=== PATIENT | male | born 1985 | race Two or more races ===

== ENCOUNTER 2025-08-18 15:34 | Outpatient (REF) | payer MEDICAID, SELFPAY ==
--- OUTSIDE RECORDS SUMMARY | 2025-08-18 14:30 | XMS_ITS | Encounter Summary ---
Author Organization [employer] Address [address] [facility] [address]t [place] [address] Care Team Providers Care Project Director Name Role Phone Padma Dunn Unavailable Saud Seay CNP Primary Care Provider [phone] Reason for Visit * Reason Comments Follow-up Hospital Encounter Details Date Type Department Care Team (Latest Contact Info) Description 08/18/2025 2:30 PM EDT Office Visit [facility] [address] [place], [place] [phone] Saud Seay CNP [address] [place], [place] [phone] Hyperlipidemia, unspecified hyperlipidemia type (Primary Dx); Encounter to establish care; Depression, unspecified depression type; Bipolar affective disorder, remission status unspecified ([facility]); Anxiety; Seasonal allergies; Erectile dysfunction, unspecified erectile dysfunction type; Screening for STDs (sexually transmitted diseases) Social History Tobacco Use Types Packs/Day Years Used Date Smoking Tobacco: Never Smokeless Tobacco: Never Tobacco Cessation:Counseling Given: Not Answered Alcohol Use Standard Drinks/Week Comments Never 0 (1 standard drink = 0.6 oz pur e alcohol) Housing Stability Answer Date Recorded What is your housing situation today? I have amber garcia 08/12/[address] you li ve. Do you have problems with any of the following? Not on file 08/12/2025 Food Insecurity Answer Date Recorded Within the past 12 months, y ou worried that your food would run out before you got money to buy more: Often true 08/12/2025 Within the past 12 months,th e food you bought just didn't last and you didn't have enough money to get more: Often true Transportation Answer Date Recorded In the past 12 months, has l ack of transportation kept you from medical appts, meetings, work or from getting things needed for daily living? Yes, it has kept me from medical appointments or getting medications. 08/12/2025 Utilities Answer Date Recorded In the past 12 months, has t he electric, gas, oil or water company threatened to shut off services in your home? No 08/12/2025 Internet Access Answer Date Recorded Internet Access Q1 No 08/12/2025 Internet Access Q2 I cannot afford it 08/12/2025 Sex and Gender Information Value Date Recorded Sex Assigned at Male 06/24/2024 1:39 PM EDT Legal Sex Male 1:37 PM EDT Gender Identity Male 06/24/2024 1:39 PM EDT Sexual Orientation Don't know 06/24/2024 1: 39 PM EDT documented as of this encounter Last Filed Vital Signs Vital Sign Reading Time Taken Comments Blood Pressure 116/78 08/18/2025 2:41 PM EDT Pulse 76 08/18/2025 2:41 PM EDT Temperature 36.6 C (97.8 F) 08/18/2025 2:41 PM EDT Respiratory Rate 14 08/18/2025 2:41 PM EDT Oxygen Saturation 98% 08/18/2025 2:41 PM EDT Inhaled Oxygen Concentration - - Weight 113 kg (249 lb) 08/18/2025 2:41 PM EDT Height 185.4 cm (6' 1 ) 08/18/2025 2:41 PM EDT Body Mass Index 32.85 08/18/2025 2:41 PM EDT documented in this encounter Plan of Treatment Scheduled Orders Name Type Priority Associated Diagnoses Orde r Schedule Lipid Panel, Standard Lab Routine Hyperlipidemia, unspecified hyperlipidemia type Encounter to establish care Expected: 08/18/2025 (Approximate), Expires: 08/18/2026 HIV-1/2 Antigen and Antibodies, Fourth Generation, with Reflexes Lab Routine Encounter to establish care Expected: 08/18/2025 (Approximate), Expires: 08/18/2026 Hepatitis C Antibody with Reflex to HCV, RNA, Quantitative, Real-Time PCR Lab Routine Encounter to establish care Expected: 08/18/2025, Expires: 08/18/2026 Hepatitis B Surface Antibody, Qualitative Lab Routine Encounter to establish care Expected: 08/18/2025 (Approximate), Expires: 08/18/2026 Hepatitis B Core Antibody, Total Lab Routine Encounter to establish care Expected: 08/18/2025 (Approximate), Expires: 08/18/2026 Hepatitis B surface antigen, EIA Lab Routine Encounter to establish care Expected: 08/18/2025 (Approximate), Expires: 08/18/2026 CBC auto differential Lab Routine Encounter to establish care Expected: 08/18/2025 (Approximate), Expires: 08/18/2026 Comprehensive Metabolic Panel Lab Routine Encounter to establish care Expected: 08/18/2025 (Approximate), Expires: 08/18/2026 TSH W/Reflex to FT4 Lab Routine Encounter to establish care Expected: 08/18/2025 (Approximate), Expires: 08/18/2026 RPR (Monitor) with Reflex to Titer Lab Routine Screening for STDs (sexually transmitted diseases) Expected: 08/18/2025, Expires: 08/18/2026 Chlamydia/N. Gonorrhoeae, PCR, Urine Lab Routine Screening for STDs (sexually transmitted diseases) Ordered: 08/18/2025 Hemoglobin A1c Lab Routine Hyperlipidemia, unspecified hyperlipidemia type Expected: 08/18/2025 (Approximate), Expires: 08/18/2026 documented as of this encounter Visit Diagnoses Diagnosis Hyperlipidemia, unspecified hyperlipidemia type- Primary Encounter to establish care Depression, unspecified depression type Bipolar affective disorder, remission status unspecified ([facility]) Anxiety Anxiety state, unspecified Seasonal allergies Allergic rhinitis, cause unspecified Erectile dysfunction, unspecified erectile dysfunction type Screening for STDs (sexually transmitted diseases) Screening examination for venereal disease documented in this encounter Care Teams Project Director Relationship Specialty Start Date End Date Saud Seay CNP [address] [place] [id number] PCP - General Family Medicine 08/18/25 Padma Dunn Strength And Conditioning Coach Behavioral Health 07/22/25 Talia Momin Field EngineerSenior Adults Director 08/21/24 documented as of this encounter
--- OUTSIDE RECORDS SUMMARY | 2025-08-18 18:22 | XMS_ITS | Encounter Summary ---
Author Organization [employer] Address [address] [facility] 7t [place] [address] Care Team Providers Care Cracker Sprayer Name Role Phone Padma Dnun Unavailable Encounter Details Date Type Department Care Team (Late st Contact Info) Description 08/13/2025 Patient Outreach [facility] Care [facility] (C3) Department [address] [facility] [address] [place] [address] Padma Dunn Social History Tobacco Use Types Packs/Day Years Used Date Smoking Tobacco: Never Assessed Housing Stability Answer Date Recorded What is [...] PM EDT documented as of this encounter Progress Notes * Padma Dunn - 08/13/2025 1:19 PM EDT [facility], PT1 scheduled for member for 08-18-2025 @2:30pm @[facility] 08/18/2025 02:00 PM 02:[address], [address] , [place] [address] , [place] [address] [id number] HOLDING VENDOR 08/18/2025 03:[address] , [place] [address], [address] , [place] [address] [id number] HOLDING VENDOR documented in this encounter Plan of Treatment Not on file documented as of this encounter Visit Diagnoses Not on filedocumented in this encounter Care Teams Cracker Sprayer Relationship Specialty Start Date End Date Padma Dunn Phlebotomy Technologist Behavioral Health 07/22/25 Talia Momin Core RescuerGroup Sales Coordinator 08/21/24 documented as of this encounter
--- OUTSIDE RECORDS SUMMARY | 2025-08-18 18:22 | XMS_ITS | Encounter Summary ---
Author Organization [employer] Address [address] [facility] 7[address] [place] [address] Care Team Providers Care Ballpoint Pen Assembly Machine Operator Name Role Phone Padma Dunn Unavailable Saud Seay CNP Primary Care Provider [phone] Encounter Details Date Type Department Care Team (Late st Contact Info) Description 08/18/2025 Patient Outreach [facility] (C3) Department [address] [facility] 7 [place] [id number] Padma Dunn Social History Tobacco Use Types Packs/Day Years Used Date Smoking Tobacco: Never Smokeless Tobacco: Never Alcohol Use Standard Drinks/Week Comments Never 0 [...] encounter Progress Notes * Padma Dunn - 08/18/2025 3:19 PM EDT CHW called member, left a voice message Checking on the PT1 and medical appointment with HC. documented in this encounter Plan of Treatment Not on file documented as of this encounter Visit Diagnoses Not on filedocumented in this encounter Care Teams Ballpoint Pen Assembly Machine Operator Relationship Specialty Start Date End Date Suad Seay CNP [address] [place] [address] PCP - General Family Medicine 08/18/25 Padma Dunn Garment Form Assembler Behavioral Health 07/22/25 Talia Momin Electric Brain Wave Equipment MechanicSuperintendent Overhead Distribution 08/21/24 documented as of this encounter
--- OUTSIDE RECORDS SUMMARY | 2025-08-18 18:22 | XMS_ITS | Encounter Summary ---
Author Organization [employer] Address [address] [facility] 7t [place] [address] Care Team Providers Care Pipeline Superintendent Name Role Phone Padma Dunn Unavailable Saud Seay CNP Primary Care Provider [phone] Encounter Details Date Type Department Care Team (Late st Contact Info) Description 08/18/2025 Patient Outreach [facility] (C3) Department [address] [facility] 7 [place] [id number] Padma Dunn Social History Tobacco Use Types [...] Progress Notes * Padma Dunn - 08/18/2025 3:57 PM EDT CHW spoke with member, Provided PT1 transport contact information. [employer]. ([id number]) documented in this encounter Plan of Treatment Not on file documented as of this encounter Visit Diagnoses Not on filedocumented in this encounter Care Teams Pipeline Superintendent Relationship Specialty Start Date End Date Saud Seay CNP [address] [place] [id number] PCP - General Family Medicine 08/18/25 Padma Dunn Steel Erector Apprentice Behavioral Health 07/22/25 Talia Momin Saw SharpenerCranberry Bog Supervisor 08/21/24 documented as of this encounter
--- OUTSIDE RECORDS SUMMARY | 2025-08-18 18:22 | XMS_ITS | Encounter Summary ---
Author Organization [employer] Address [address] [facility] [address] [place] [address] Care Team Providers Care Switch Adjuster Name Role Phone Padma Dunn Unavailable Dawood Dominickisabela VALADEZ Primary Care Provider [phone] Encounter Details Date Type Department Care Team (Latest Contact Info) Description 08/18/2025 Travel Social History Tobacco Use Types Packs/Day Years [...] PM EDT documented as of this encounter Plan of Treatment Not on file documented as of this encounter Visit Diagnoses Not on filedocumented in this encounter Care Teams Switch Adjuster Relationship Specialty Start Date End Date Saud Seay CNP [address] [place] [address] PCP - General Family Medicine 08/18/25 Padma Dunn Analysis Consultant Behavioral Health 07/22/25 Talia Momin Coater HelperDental Chair Assembler 08/21/24 documented as of this encounter
--- OUTSIDE RECORDS SUMMARY | 2025-08-18 18:22 | XMS_ITS | Encounter Summary ---
Author Organization [employer] Address [address] [facility] [address] 7[address] [place] [address] Care Team Providers Care Recruiting Team Lead Name Role Phone Padma Dunn Unavailable Reason for Visit * Reason Onset Date Comments chart prep 08/14/2025 Encounter Details Date Type Department Care Team (Late st Contact Info) Description 08/14/2025 Telephone [facility] [address] [place] [address] [facility] MD chart prep Social History Tobacco Use Types Packs/Day Years [...] PM EDT documented as of this encounter Miscellaneous Notes * Telephone Encounter - Mel Cox MA - 08/14/2025 4:16 PM EDT Chart Prep Labs: not applicable Images: not applicable Referrals: not applicable Vaccines due: Covid, Flu, Hep B, and HPV Screenings: STI screening Overdue care gaps: SBIRT, SDOH, PHQ-9, VERA-7, Disability screen, and Tobacco documented in this encounter Plan of Treatment Not on file documented as of this encounter Visit Diagnoses Not on filedocumented in this encounter Care Teams Recruiting Team Lead Relationship Specialty Start Date End Date Padma Dunn Contracts Specialist Behavioral Health 07/22/25 Talia Momin Director Industrial MuseumVp Strategy 08/21/24 documented as of this encounter
--- OUTSIDE RECORDS SUMMARY | 2025-08-18 18:22 | XMS_ITS ---
Author Organization [employer] Address [address] [facility] [address] [place] [address] Care Team Providers Care [employer] Dean Name Role Phone Padma Dunn Unavailable Saud Seay [facility] Primary Care Provider [phone] [phone] [facility] Status:Enrolled (Active) Start date:07/22/2025 Enrollment date:07/30/2025 Enrollment reason:ADT Feed Case Team Name Relationship Phone Padma Dunn(Responsible Staff) Vocal Performer Continued Care and Services Coordination
--- OUTSIDE RECORDS SUMMARY | 2025-08-18 18:22 | XMS_ITS | Clinical Summary ---
Author Organization [employer] Address [address] [facility] 7[address] [place] [address] Care Team Providers Care Occupational Therapy Department Chair Name Role Phone Padma Dunn Unavailable Saud Seay CNP Primary Care Provider [phone] Allergies No known active allergies Medications * This document contains information received from the source organization and may not represent a complete record from that organization. ARIPiprazole (Abilify) 15 MG tablet Take 15 mg by mouth in the morning. 025 Active semaglutide (Ozempic, 0.25 or 0.5 MG/DOSE,) 2 MG/1.5ML solution pen-injector Inject under the skin. Active Cholecalcifero l (Vitamin D) 50 MCG (1999 UT) capsule Take 1 capsule by mouth Once per day. Active haloperidol (Haldol) 1 MG tablet Take 1 mg by mouth if needed each day (for hallucinations). Active fluticasone (Flonase) 50 MCG/ACT nasal sprayIndicatio ns:Seasonal allergies Administer 1 spray into each nostril 2 times daily. Shake gently. Before first use, prime pump. After use, clean tip and replace cap. 16 g 3 025 Active hydrOXYzine HCl (Atarax) 25 MG tabletIndicati ons:Bipolar affective disorder, remission status unspecified (CMS/HCC),Anxi ety Take 1 tablet (25 mg) by mouth if needed in the morning, at noon, and at bedtime for itching. 90 tablet 3 025 2025 Active traZODone (Desyrel) 50 MG tabletIndicati ons:Bipolar affective disorder, remission status unspecified (CMS/HCC) Take 1 tablet (50 mg) by mouth at bedtime. 30 tablet 3 025 2025 Active divalproex (Depakote) 500 MG EC tabletIndicati ons:Bipolar affective disorder, remission status unspecified (CMS/HCC),Anxi ety Take 1 tablet (500 mg) by mouth 2 times daily. 60 tablet 3 025 2024 Active Allergy Relief Cetirizine 10 MG tabletIndicati ons:Seasonal allergies Take 1 tablet (10 mg) by mouth Once per day. 30 tablet 3 Active sildenafil (Viagra) 50 MG tabletIndicati ons:Erectile dysfunction, unspecified erectile dysfunction type Take 1 tablet (50 mg) by mouth if needed each day for erectile dysfunction. 10 tablet 025 2024 Active buPROPion XL (Wellbutrin XL) 150 MG 24 hr tablet TAKE ONE TABLET BY MOUTH EVERY DAY FOR DEPRESSION AND FOCUS 025 2024 Discontinued(M ed list cleanup (will not trigger notification to Pharmacy)) Allergy Relief Cetirizine 10 MG tablet Take 1 tablet by mouth Once per day. 025 2024 Discontinued(R eorder (will not trigger notification to Pharmacy)) cholecalcifero l VITAMIN D (Vitamin D-3) 50 MCG (2000 UT) tablet Take 1 tablet by mouth Once per day. 025 2024 Discontinued(M ed list cleanup (will not trigger notification to Pharmacy)) divalproex (Depakote) 500 MG EC tablet Take 1 tablet by mouth 2 times daily. 025 2024 Discontinued(R eorder (will not trigger notification to Pharmacy)) fluticasone (Flonase) 50 MCG/ACT nasal spray ADMINISTER 2 SPRAYS TO BOTH NOSTRILS DAILY NEEDED FOR NASAL CONGESTION 025 2024 Discontinued(R eorder (will not trigger notification to Pharmacy)) haloperidol (Haldol) 0.5 MG tablet TAKE ONE TABLET BY MOUTH TWICE A DAY NEEDED FOR HALLUCINATIONS 025 2024 Discontinued(M ed list cleanup (will not trigger notification to Pharmacy)) hydrOXYzine HCl (Atarax) 25 MG tablet TAKE ONE TABLET BY MOUTH THREE TIMES A DAY NEEDED FOR ANXIETY / INSOMNIA 025 2024 Discontinued(R eorder (will not trigger notification to Pharmacy)) ibuprofen 800 MG tablet Take 1 tablet by mouth every 8 (eight) hours if needed for pain. 025 2024 Discontinued(M ed list cleanup (will not trigger notification to Pharmacy)) OLANZapine (ZyPREXA) 5 MG tablet Take 1 tablet by mouth at bedtime. 025 2024 Discontinued(M ed list cleanup (will not trigger notification to Pharmacy)) traZODone (Desyrel) 50 MG tablet TAKE ONE TABLET BY MOUTH EACH NIGHT AT BEDTIME NEEDED FOR INSOMNIA 2024 Discontinued(R eorder (will not trigger notification to Pharmacy)) haloperidol (Haldol) 1 MG tablet Take 1 mg by mouth 2 times daily. As needed for hallucinations 2024 Discontinued(M ed list cleanup (will not trigger notification to Pharmacy)) Encounters Date Type Department Care Team Description 08/18/2025 2:30 PM EDT Office Visit [facility] [address] [place] [address] Saud Seay CNP Hyperlipidemia, unspecified hyperlipidemia type (Primary Dx); Encounter to establish care; Depression, unspecified depression type; Bipolar affective disorder, remission status unspecified ([facility]); Anxiety; Seasonal allergies; Erectile dysfunction, unspecified erectile dysfunction type; Screening for STDs (sexually transmitted diseases) 08/18/2025 Patient Outreach [facility] [address] [phone] Padma Dunn 08/18/2025 Patient Outreach [facility] [address] [phone] Padma Dunn 08/18/2025 Travel 08/14/2025 Telephone [facility] [address] [place] [address] Trae CoxhaNATI chart prep 08/13/2025 Patient Outreach [facility] [address] [phone] Padma Dunn 08/12/2025 [facility] Outreach [facility] [address] [place] [address] Arleen Fuller LMHC 08/12/2025 Patient Outreach [facility] Department [address] [place] [address] DunnPadma nathan 08/12/2025 [facility] Outreach [facility] Department [address] [place] [address] DunnPadma nathan 08/12/2025 Telephone [facility] [address] [place] [address] Trae CoxhaNATI chart prep 08/11/2025 Patient Outreach [facility] () Department [address] [place] [address] Padma Dunn 08/07/2025 Patient Outreach [facility] MEDICINE [address] [place] [phone] Saud Seay CNP 08/07/2025 Patient Outreach [facility] MEDICINE [address] [place] [phone] Saud Seay CNP Transition Of Care (Tcm) (BH notification ) 08/07/2025 Telephone [facility] MEDICINE [address] [place] [phone] Sherine Albarado RN 08/07/2025 Patient Outreach [facility] MEDICINE [address] [place] [phone] Saud Seay CNP Transition Of Care (Tcm) (Discharge summary attempt) 08/06/2025 Patient Outreach [facility] () Department [address] [place] [address] Padma Dunn 08/06/2025 Patient Outreach [facility] ([facility]) Department [address] [place] [address] DunnPadma nathan 08/06/2025 Telephone [facility] MEDICINE [address] [place] [phone] Herber Rollins, Sammy Care Coordination (Discharge Summary Request ) 08/05/2025 Telephone [facility] & PEDS [address] [place] [address] Brooke MelNATI chart prep 08/04/2025 [facility] Outreach [facility] Department [address] [place] [address] Arleen Fuller, [facility] 08/04/2025 Patient Outreach [facility] Department [address] [place] [address] DunnPadma nathan 07/31/2025 Patient Outreach [facility] [address] [place] [address] Arleen Fuller, [facility] 07/30/2025 Patient Outreach [facility] [address] [place] [address] Saud Seay CNP Transition Of Care (Tcm) (HDF/CRUSHER LOADER OPERATOR- Scheduled) 07/30/2025 [facility] Outreach [facility] Department [address] [place] [address] Dunn, Padma 07/30/2025 [facility] Outreach [facility] Department [address] [place] [address] Dunn, Padma 07/30/2025 [facility] Outreach [facility] Department [address] [place] [address] Dunn, Padma 07/30/2025 [facility] Outreach [facility] Department [address] [place] [address] Dunn, Padma 07/28/2025 [facility] Outreach [facility] Department [address] [place] [address] Arleen Fuller, LMHC 07/28/2025 Patient Outreach [facility] Department [address] [place] [address] Arleen Fuller, [facility] 07/24/2025 [facility] Outreach [facility] Department [address] [place] [phone] DunnPadma nathan 07/24/2025 Patient Outreach [facility] Department [address] [place] [phone] DunnPadma nathan 07/23/2025 [facility] Outreach [facility] Department [address] [place] [phone] Arleen Fuller, [facility] 07/23/2025 Patient Outreach [facility] Department [address] [place] [phone] DunnPadma nathan 07/23/2025 Patient Outreach [facility] MEDICINE [address] [place] [phone] Danelle Mirza RN Care Coordination ([facility] Program) 07/22/2025 [facility] Outreach [facility] Department [address] [place] [phone] Padma Dunn 07/22/2025 [facility] Outreach [facility] () Department [address] [place] [phone] Arleen Fuller, [facility] 07/21/2025 [facility] Outreach [facility] () Department [address] [place] [phone] Arleen Fuller, [facility] 05/21/2025 Telephone [facility] MEDICINE [address] [place] [phone] Vincent Jeffries MD Appointment Request from Last 3 Months Social History Tobacco Use Types Packs/Day Years [...] Don't know 06/24/2024 1: 39 PM EDT Last Filed Vital Signs Vital Sign Reading [...] Mass Index 32.85 08/18/2025 2:41 PM EDT Plan of Treatment Health Maintenance Due Date Last Done Comments Depression Screening 1985 HIV Screening 1985 Lipid Panel 1985 SDOH Screening 1985 Disability Screening 1985 Alcohol/Substance Use Screening 1997 Family Planning (PISQ) 01/27/2000 HPV Vaccines (1 - Male 3-dos e series) 01/27/2000 Hepatitis C Screening 2003 DTaP/Tdap/Td Vaccines (1 - Tdap) 01/27/2004 Hepatitis B Vaccines (1 of 3 - 19+ 3-dose series) 01/27/2004 COVID-19 Vaccine (1 - 2023-2 5 season) 2025 Influenza Vaccine (#1) 2025 Tobacco Screening 08/18/2026 08/18/2025 Zoster Vaccines (1 of 2) 2035 RSV Patients and Pa tients Aged 60 years or older (1 - 1-dose 75+ series) 01/27/2060 HIB Vaccines Aged Out No longer eligi ble based on patient's age to complete this topic Hepatitis A Vaccines Aged Out No long er eligible based on patient's age to complete this topic IPV Vaccines Aged Out No longer eligi ble based on patient's age to complete this topic Meningococcal B Vaccine Aged Out No l onger eligible based on patient's age to complete this topic Meningococcal Vaccine Aged Out No robel isatu eligible based on patient's age to complete this topic Pneumococcal Vaccine: Pediat rics (0 to 5 Years) and At-Risk Patients (6 to 49) Years Aged Out No longer eligi ble based on patient's age to complete this topic RSV under 20 months Aged Out No longe r eligible based on patient's age to complete this topic Rotavirus Vaccines Aged Out No longer eligible based on patient's age to complete this topic Insurance [facility] Care Teams Occupational Therapy Department Chair Relationship Specialty Start Date End Date Saud Seay CNP [address] [place] [phone] PCP - General Family Medicine 08/18/25 Padma Dunn [employer] 07/22/25 Talia Momin [employer] Folder[employer]n Occupational Health 08/21/24
[2025-08-18 18:30] LABS: MANUAL DIFF FLAG NO
[2025-08-18 18:43] LABS: Hematocrit 45.1 % (42.0-52.0); Hemoglobin 15.2 g/dl (14.0-18.0); Imm Gran Abs Auto 0.02 X10*3/uL (0.00-0.03); Imm Gran Pct Auto 0.3 % (0.0-0.4); Lymphocytes Absolute Auto 1.1 X10*3/uL (1.2-4.9); Mean Corpuscular HGB Conc 33.7 g/dl (31.0-36.0); Mean Corpuscular Hemoglobin 28.7 pg (27.0-33.0); Mean Corpuscular Volume 85.1 fL (80.0-98.0); NRBC Abs Auto 0.000 X10*3/uL (0.0-0.012); NRBC Pct Auto 0.0 /100WBC (0.0-0.2); Platelet Count 143 X10*3/uL (160-400); Red Blood Count 5.30 X10*6/uL (4.60-5.80); White Blood Count 6.8 X10*3/uL (4.8-10.8)
[2025-08-18 19:05] LABS: Hemoglobin A1C 127.8484 umol/L; Total Hemoglobin (HGBA1C) 3887.0102 umol/L
[2025-08-18 19:10] LABS: Alanine Aminotransferase 84 U/L (0-40); Albumin Level 4.6 g/dL (3.5-5.0); Alkaline Phosphatase 88 U/L (39-117); Anion Gap 11 (12-20); Aspartate Amino Transferase 44 U/L (5-37); Blood Urea Nitrogen 17 mg/dL (9-16); Calcium 9.0 mg/dL (8.4-10.2); Carbon Dioxide 27 mmol/L (22-29); Chloride 107 mmol/L (96-108); Cholesterol 149 mg/dL (<200); Estimated Glomerular Filt Rate 54; HDL Cholesterol 30 mg/dL (>40); Potassium 3.8 mmol/L (3.3-5.1); Sodium 141 mmol/L (135-145); Total Protein 8.0 g/dL (6.5-8.0); Triglycerides 124 mg/dL (<150)
[2025-08-19 02:34] LABS: CT PCR Urine NOT DETECTED (Not Detect.); NG PCR Urine NOT DETECTED (Not Detect.)
[2025-08-19 08:54] LABS: HBS Num1 39.10 mIU/mL (0-7.99); HBc Num1 0.10 S/CO (0.00-0.79); HIV Num 1 0.05 S/CO (0.00-0.99); ~HepC Num1 0.10 S/CO (0.00-0.79); ~Hepatitis B Surface Antibody REACTIVE (Nonreactive); ~Hepatitis C Antibody Nonreactive (Nonreactive)
[2025-08-19 09:57] LABS: HBsAGNum1 0.30 S/CO (0.00-0.99); Hepatitis B Surface Antigen Negative (Negative)
== END 2025-08-18 15:35 | disposition home or self-care (01) ==
LOC: HO.CHCLDS 15:34
DX: Z11.3 Encounter for screening for infections with a predominantly sexual mode of transmission (principal); Z11.8 Encounter for screening for other infectious and parasitic diseases; Z11.59 Encounter for screening for other viral diseases; Z11.4 Encounter for screening for human immunodeficiency virus [HIV]; E78.5 Hyperlipidemia, unspecified; Z76.89 Persons encountering health services in other specified circumstances
CPT/HCPCS: 36415; 80053; 80061; 83036; 84443; 85025; 86592; 86704; 86706; 86803; 87340; 87389; 87491; 87591